=== PATIENT | female | born 1990 | race Caucasian/White ===

== ENCOUNTER 2022-09-13 11:28 | Outpatient (CLI) | payer BC | END 2022-09-13 11:29 | disposition home or self-care (01) | LOC: SCSMRI 11:28 | PROVIDERS: ATTEND Neurological Surgery | DX: M54.16 Radiculopathy, lumbar region (principal); M51.27 Other intervertebral disc displacement, lumbosacral region | CPT/HCPCS: 72148 ==

== ENCOUNTER 2022-10-11 08:07 | Day surgery (SDC) | payer BC ==
[2022-10-06 16:00] VITALS: BMI 25.9
[2022-10-11] MEDS ORDERED: EPINEPHrine 1 MG/ML AMP ONE (08:43)
[2022-10-11] MEDS ORDERED: Bupivacaine PF 0.5% 30 ML VIAL ONE (08:43)
[2022-10-11] MEDS ORDERED: Fentanyl 250 MCG/5 ML VIAL ONE (08:52)
[2022-10-11] MEDS ORDERED: Sodium Chloride 0.9% 100 ML ONE ×2 (09:12→12:20)
[2022-10-11] MEDS ORDERED: CEFAZOLIN 2 GM VIAL ONE ×2 (09:12→12:20)
[2022-10-11] MEDS ORDERED: Rocuronium Bromide 10 MG/ML (10ML VIAL) ONE (09:25)
[2022-10-11] MEDS ORDERED: NEOSTIGMINE 3 MG/3 ML SYR 3 MG/3 ML SYRINGE ONE (09:25)
[2022-10-11] MEDS ORDERED: Glycopyrrolate 0.2 MG/ML 5 ML SYRINGE ONE (09:25)
[2022-10-11] MEDS ORDERED: Lidocaine 1% PF 5 ML VIAL ONE (09:25)
[2022-10-11] MEDS ORDERED: PROPOFOL 200 MG/20 ML VIAL ONE (09:25)
[2022-10-11] MEDS ORDERED: Ondansetron PF 4 MG/2 ML Vial ONE (09:25)
[2022-10-11] MEDS ORDERED: Ketorolac Tromethamine 30 MG/ML VIAL ONE (09:25)
[2022-10-11] MEDS ORDERED: Dexamethasone 20 MG/5 ML VIAL ONE (09:25)
[2022-10-11] MEDS ORDERED: fentaNYL 50 mcg/mL 1 mL Vial ONE (11:35)
[2022-10-11] MEDS ORDERED: Promethazine HCl 25 MG/ML VIAL ONE (12:20)
== END 2022-10-11 13:42 | disposition home or self-care (01) ==
LOC: SDC 08:07
PROVIDERS: ATTEND Neurological Surgery
PROC: 01NB0ZZ Release Lumbar Nerve, Open Approach (ICD-10-PCS; principal; 2022-10-11)
DX: M51.16 Intervertebral disc disorders with radiculopathy, lumbar region (principal); Z90.49 Acquired absence of other specified parts of digestive tract
CPT/HCPCS: J0171; J1100; J1885; J2405; J2550; J2704; J3010; J3490; S0020